=== PATIENT | female | born 1945 | race Caucasian/White ===

== ENCOUNTER → 2017-04-05 | Outpatient (CLI) | payer MEDICARE, OTHER ==
--- NOTE | 2017-04-05 17:46 | RAD ---
Metastatic skeletal survey, 04/05/2017: History: Multiple myeloma Multiple views of the bony skeleton were obtained with the following findings are delineated: 1. AP and lateral views of the cervical, thoracic and lumbar spine reveal moderate multilevel degenerative changes. There is a mild thoracolumbar scoliosis. No fracture or destructive bony lesion is seen. 2. A lateral view of the skull reveals no abnormality. 3. A PA view of the chest reveals no destructive bone lesion. The heart size is normal. The lungs are clear. 4. An AP view of the pelvis reveals no abnormality. 5. AP views of both femurs, lower legs, humeri and forearms reveal no fracture or destructive bony lesion. IMPRESSION: 1. Moderate multilevel degenerative change in the spine. 2. Demineralization. 3. No destructive bony lesion is evident.
== END | disposition home or self-care (01) ==
LOC: RAD 12:32
PROVIDERS: ATTEND Internal Medicine Hematology & Oncology
DX: C90.00 Multiple myeloma not having achieved remission (principal)
CPT/HCPCS: 77075

== ENCOUNTER → 2019-01-09 | Outpatient (CLI) | payer MEDICARE, OTHER ==
--- NOTE | 2019-01-16 13:27 | KCIC ---
Bilateral digital screening mammograms and tomosynthesis Reason for examination: Routine screening. New baseline. Remote history of benign left breast biopsy. No comparison studies available. Routine CC and MLO digital views obtained. Interpretation was made with the benefit of CAD. The skin and nipples show no abnormalities. No abnormal lymph nodes are seen. The breast parenchyma is scattered fibroglandular elements. (Breast density: Category B.) There are no suspicious masses, suspicious calcifications or suspicious architectural distortions. Mild distortion of the left upper outer breast tissues related to the history of prior benign surgical excisional biopsy. Separately at the left outer breast posterior depth 3:00 position 6 cm from the nipple is a 1.5 cm circumscribed lobular mass. Separately within the left outer central breast 5 cm from the nipple is a subcentimeter oval circumscribed mass, cyst or lymph node CC tomosynthesis image 7. Separately at the left inner lower breast 8:00 position 6 cm from the nipple there is a 1 cm focal glandular asymmetry without a discrete mass. Given no prior studies to document stability of these findings, this requires further work up with sonography. Impression: 2 small masses of the left outer breast, and small focal glandular asymmetry of the left inner lower breast, as described above. Further evaluation with left breast ultrasound is advised. BI-RADS Category 0: Incomplete examination. Additional imaging advised. "Our facility is accredited by the [employer] Mammography Program." This patient's information has been entered into a reminder system for the patient to be notified with the results of her examination and a target date for the next mammogram. Electronically signed by: Jameson Jain MD (01/16/2019 1:24 PM) [id number]
== END | disposition home or self-care (01) ==
LOC: KCIC MAMMO 14:27
PROVIDERS: ATTEND Family Medicine
DX: Z12.31 Encounter for screening mammogram for malignant neoplasm of breast (principal); N63.23 Unspecified lump in the left breast, lower outer quadrant
CPT/HCPCS: 77063; 77067

== ENCOUNTER → 2019-05-04 | Outpatient (CLI) | payer MEDICARE, OTHER ==
--- NOTE | 2019-05-04 14:32 | KCIC ---
Left breast ultrasound: Reason for examination: Parenchymal densities on screening mammogram. Comparison is made to mammographic exams dated 01/09/2019 and 02/16/2013. Left whole breast ultrasound including evaluation of all 4 quadrants and the retroareolar and axillary regions of the left breast was performed. At the 3:00 position 5 cm from the nipple, there is an irregularly marginated and posterior shadowing 1.3 cm mass present. Ultrasound-guided biopsy is recommended. In the 4:00 position 4.5 cm from the nipple, there is a small 2.9 mm fibrocystic lesion. In the 9:00 position 3 cm from the nipple, there is a hypoechoic irregularly marginated mass measuring 1.3 cm in greatest dimension. Ultrasound-guided biopsy is recommended. No other cystic or solid lesions are seen. No abnormal appearing lymph nodes are seen in the axilla. IMPRESSION: Irregularly marginated masses at the 3:00 position 5 cm from the nipple and at the 9:00 position 3 cm from the nipple both measuring 1.3 cm in greatest dimensions. Recommend further evaluation with ultrasound guided biopsies. BI-RADS Category 4: Suspicious. This report was discussed with the patient and the patient's physician , Dr. Baird, was notified about these findings on 05/04/2019 at 1425. "Our facility is accredited by the [employer] Mammography Program." Electronically signed by: Carmelita Lee MD (05/04/2019 2:29 PM) [facility]
== END ==
LOC: KCIC US 09:58
PROVIDERS: ATTEND Family Medicine
DX: N63.20 Unspecified lump in the left breast, unspecified quadrant (principal)
CPT/HCPCS: 76641

== ENCOUNTER → 2019-05-29 | Outpatient (CLI) | payer MEDICARE, OTHER ==
--- NOTE | 2019-05-29 15:27 | RAD ---
Examination: US GUID NDL PLACE/ASPI/BX, DIGITAL DIAGNOSTIC LT History: 2 left breast masses. Comparison/Correlation: 01/09/2019 screening mammogram exam, 05/04/2019 left breast ultrasound Findings: Risks and benefits of ultrasound-guided breast biopsies with clip marker placement were discussed with the patient. Informed consent was obtained. Cleansing of the left breast was performed with ChloraPrep. Sterile drapes were placed. Lateral approach was utilized for the 3 clock mass lesion. 5 cc 1 percent lidocaine was administered along the expected course of the needle tract to the mass and on the medial aspect of the. Small scalpel incision was made. An introducer was placed. 12-gauge core biopsy needle was placed and a total of 4 passes were made and specimens were placed in formalin jar. This structure decreased in size and appears to at least be partially complex cyst related. Small amount of fluid was noted to drain through the introducer. Subsequently, biopsy clip marker was placed via the introducer. A medial approach was utilized for the left breast 9:00 region mass. 6 cc 1 percent lidocaine was administered medial to the mass and just lateral to it as well. Small scalpel incision was made. An introducer was placed. A separate 12-gauge core biopsy needle was placed into the mass for total of 5 passes. Specimens were placed in the specimen jar. Magic marker was then placed via the introducer. Left MLO and CC images were then obtained and reviewed on a mammography workstation. Biopsy clip markers are identified at the left upper outer breast and the left inner lower breast. No hematoma identified. Impression: Successful biopsy of 2 left breast masses. Specimens sent to the lab in 2 separate formalin jars. Electronically signed by: Willi Foster MD (05/29/2019 3:24 PM) [facility]
--- NOTE | 2019-05-30 16:06 | PATHOLOGY ---
[facility] Accession Number: [id number] . 01 Material submitted: . PART A: breast - LEFT BREAST MASS, 9:00, 3CMFN. Modifiers: left, 9:00 PART B: breast - LEFT BREAST MASS, 3:00, 5CMFN. Modifiers: left, 3:00 . 01 Clinical history: . A. Left breast mass 1.3 cm B. Left breast mass 1.3 cm . 02 Diagnosis: A. Breast tissue, left breast mass 9:00 needle biopsies: - Small focus of stromal fibrosis and mild duct ectasia. . B. Breast tissue, left breast mass 3:00 needle biopsies: - Small focus of stromal fibrosis and focal recent hemorrhage. LBQ 05/30/2019 1429 Local . 02 Comment: Sections of the left breast mass at 9:00 needle biopsy primarily reveal fatty breast tissue containing a few widely scattered small ducts. There is a small focus of stromal fibrosis and mild duct ectasia measuring 4-5 mm in greatest dimension. I am not certain if the mass is represented in the biopsy material. Please correlate with mammographic findings. . Sections of the left breast mass at 3:00 needle biopsy again predominantly reveal fatty breast tissue. There is a small focus of stromal fibrosis measuring 2-3 mm. There are foci of recent hemorrhage measuring up to 0.4 cm. I am not certain if the mass is represented in the biopsy material. Please correlate with mammographic findings. (JPM/db; 05/30/2019) . 02 Electronically signed: . Ollie Espino MD, Pathologist NPI- [id number] . 01 Gross description: . A. Received in formalin labeled "Claudia Kang, left breast 9:00," and additionally labeled on the requisition as "3 cm FN," are multiple needle cores of yellow-stewart fibrofatty tissue measuring 1.5 x 1.2 x 0.4 cm in aggregate dimensions. The tissue is submitted in its entirety in cassette A1-A3. The cold ischemic time is 5 minutes. The total formalin fixation time is 10 hours. . B. Received in formalin labeled "Claudia Kang, left breast 3:00," and additionally labeled on the requisition as "5 cm FN," are multiple needle cores of yellow-stewart fibrofatty tissue measuring 1.1 x 1.0 x 0.3 cm in aggregate dimensions. The tissue is submitted in its entirety in cassette B1-B3. The cold ischemic time is 5 minutes. The total formalin fixation time is 9 hours and 50 minutes. (TSD; 05/29/2019) TOB/TOB 05/29/2019 Local . 02 Pathologist provided ICD-10: N60.32, N60.42 . 02 CPT . 708252, 135250 Specimen Comment: A courtesy copy of this report has been sent to [phone], [phone] Specimen Comment: [id number], Specimen Comment: Report sent to ,DR PAYTON / DR CARRILLO Performed at: 01 [facility] [address], [place] [id number] MD Alden Peace MD Phone: [phone] [facility]formed at: 02 [facility] [address] [place], [place] [id number] MD Ollie Espino MD Phone: [phone]
== END ==
LOC: US 12:02
PROVIDERS: ATTEND Surgery
DX: N63.20 Unspecified lump in the left breast, unspecified quadrant (principal); N60.32 Fibrosclerosis of left breast
CPT/HCPCS: 19083; 19084; 88305; C1713; 19081; 76942

== ENCOUNTER → 2019-05-29 | Outpatient (CLI) | payer MEDICARE, OTHER ==
--- NOTE | 2019-05-29 15:27 | RAD ---
Examination: US GUID NDL PLACE/ASPI/BX, DIGITAL DIAGNOSTIC LT History: 2 left breast masses. Comparison/Correlation: 01/09/2019 screening mammogram exam, 05/04/2019 left breast ultrasound Findings: Risks and benefits of ultrasound-guided breast biopsies with clip marker placement were discussed with the patient. Informed consent was obtained. Cleansing of the left breast was performed with ChloraPrep. Sterile drapes were placed. Lateral approach was utilized for the 3 clock mass lesion. 5 cc 1 percent lidocaine was administered along the expected course of the needle tract to the mass and on the medial aspect of the. Small scalpel incision was made. An introducer was placed. 12-gauge core biopsy needle was placed and a total of 4 passes were made and specimens were placed in formalin jar. This structure decreased in size and appears to at least be partially complex cyst related. Small amount of fluid was noted to drain through the introducer. Subsequently, biopsy clip marker was placed via the introducer. A medial approach was utilized for the left breast 9:00 region mass. 6 cc 1 percent lidocaine was administered medial to the mass and just lateral to it as well. Small scalpel incision was made. An introducer was placed. A separate 12-gauge core biopsy needle was placed into the mass for total of 5 passes. Specimens were placed in the specimen jar. Magic marker was then placed via the introducer. Left MLO and CC images were then obtained and reviewed on a mammography workstation. Biopsy clip markers are identified at the left upper outer breast and the left inner lower breast. No hematoma identified. Impression: Successful biopsy of 2 left breast masses. Specimens sent to the lab in 2 separate formalin jars. Electronically signed by: Willi Foster MD (05/29/2019 3:24 PM) [facility]
== END | disposition home or self-care (01) ==
LOC: MAMMO 11:55
PROVIDERS: ATTEND Surgery
DX: N60.32 Fibrosclerosis of left breast (principal); N60.42 Mammary duct ectasia of left breast; N63.24 Unspecified lump in the left breast, lower inner quadrant; N63.23 Unspecified lump in the left breast, lower outer quadrant; N64.89 Other specified disorders of breast
CPT/HCPCS: 19081; 19083; 19084; 76942; 77065; 88305; C1713

== ENCOUNTER → 2020-01-10 | Outpatient (CLI) | payer MEDICARE, OTHER ==
--- NOTE | 2020-01-10 18:11 | KCIC ---
Bilateral diagnostic digital mammograms with 3-D tomosynthesis: Reason for examination: Follow-up from biopsies. Comparison is made to previous studies dated 01/09/2019 and 02/16/2013. Bilateral mammograms in CC and oblique projections were obtained with 2-D imaging and 3-D tomosynthesis imaging on a Siemens Inspiration unit and reviewed on the workstation. Interpretation was made with the benefit of CAD. The skin and nipples show no abnormalities. No abnormal axillary lymph nodes are seen. The breast parenchyma shows scattered fatty and fibroglandular density. (Breast density: Category B.) There continue to be nodules at the 3:00 and 9:00 B positions of the left breast with adjacent biopsy clips. There also is a small focus of nodularity posterior laterally in the left cc view probably at the 1:00 position. Ultrasound will follow. There are no other dominant masses, suspicious calcifications or architectural distortion. Impression: Nodules at the 3:00 and 9:00 positions of the left breast adjacent biopsy clips. Small nodular density posteriorly at the 1:00 position of the left breast. Ultrasound to follow. BI-RAD Category 0: Incomplete. Needs additional imaging evaluation. Left breast ultrasound: Comparison is made to previous studies dated 05/29/2019 and 05/04/2019. Left whole breast ultrasound including evaluation of all 4 quadrants and the retroareolar and axillary regions of the left breast was performed. There continues to be hypoechoic somewhat heterogeneous nodule in the 3:00 position 5 cm from the nipple measuring 1 cm in greatest dimension with adjacent biopsy clip. There continues to be a 1.4 cm hypoechoic somewhat heterogeneous nodule at the 9:00 position 3.5 cm in size with biopsy clip present. There is also a subtle nodule at the 1:00 position 6 cm from the nipple line in parallel orientation measuring 1 cm in greatest dimension which probably represents a small fibroadenoma. No other suspicious nodules are seen. No abnormal appearing lymph nodes are seen in the axilla. IMPRESSION: Benign nodules at the 3:00 and 9:00 positions. Small nodule consistent with fibroadenoma at the 1:00 position. Recommend continued 6 month follow-up with left breast mammograms and ultrasound. BI-RADS Category 3: Probably Benign. "Our facility is accredited by the [employer] Mammography Program." This patient's information has been entered into a reminder system for the patient to be notified with the results of her examination and a target date for the next mammogram. Electronically signed by: Carmelita Lee MD (01/10/2020 6:08 PM) [email or web address]
== END | disposition home or self-care (01) ==
LOC: KCIC MAMMO 09:24
PROVIDERS: ATTEND Family Medicine
DX: R92.2 Inconclusive mammogram (principal); N63.24 Unspecified lump in the left breast, lower inner quadrant; N63.21 Unspecified lump in the left breast, upper outer quadrant
CPT/HCPCS: 76641; 77066; G0279; 77062

== ENCOUNTER → 2020-09-25 | Outpatient (CLI) | payer MEDICARE, OTHER ==
--- NOTE | 2020-09-26 09:00 | KCIC ---
XR CERVICAL SPINE 2-3V DATE: 09/25/2020 2:02 PM INDICATION: Neck pain since Jun. No known injury. COMPARISON: None. FINDINGS: The cervical spine is visualized to the level of the cervicothoracic junction on the latera l views. Bones/Alignment: No evidence of acute fracture. There is no listhesis. Normal alignment of the later al masses of C1 on C2. Joints: Mild multilevel degenerative disc disease. The facets are normally aligned. Soft tissue: No significant prevertebral soft tissue swelling. IMPRESSION: Mild cervical spondylosis Electronically signed by: Edilberto Peralta MD (09/26/2020 8:58 AM) [facility]
== END ==
LOC: KCIC 13:58
PROVIDERS: ATTEND Nurse Practitioner Gerontology
DX: M47.812 Spondylosis without myelopathy or radiculopathy, cervical region (principal); M50.30 Other cervical disc degeneration, unspecified cervical region
CPT/HCPCS: 72040

== ENCOUNTER → 2020-10-10 | Outpatient (CLI) | payer MEDICARE, OTHER ==
--- NOTE | 2020-10-10 13:27 | KCIC ---
MR CERVICAL SPINE WO DATE: 10/10/2020 10:25 AM INDICATION: cervical arthritis. Pain and stiffness, LROM in neck. Pain is worse in the AM, since Jun . TECHNIQUE: Multiplanar multisequence magnetic resonance imaging of the cervical spine was performed w ithout administration of intravenous contrast using the standard cervical spine protocol. COMPARISON: Cervical spine radiograph 09/25/2020. FINDINGS: The cervical spine is normally aligned. No acute fracture. Mild multilevel degenerative disc desicca tion and disc height loss. No marrow replacing process to suggest malignancy. The spinal cord is normal in signal intensity. On the limited views of the cranial cavity and brain, the cerebellum and brody have normal morphology and signal characteristics. No Chiari malformation. No soft tissue abnormality. Normal signal voids are present in the vertebral arteries. C2-3: No significant spinal canal stenosis or neural foraminal narrowing. C3-4: Mild left facet arthropathy. Mild left neural foraminal narrowing. No spinal canal stenosis. C4-5: Mild left facet arthropathy. No significant spinal canal stenosis or neural foraminal narrowing . C5-6: Disc osteophyte complex. Uncovertebral hypertrophy. Mild facet arthropathy. Mild bilateral neur al foraminal narrowing. No spinal canal stenosis. C6-7: Disc osteophyte complex. Uncovertebral hypertrophy. Mild facet arthropathy. Ligamental flavum t hickening. Mild right neural foraminal narrowing. Mild spinal canal stenosis. C7-T1: Mild facet arthropathy. No significant spinal canal stenosis or neural foraminal narrowing. IMPRESSION: Mild cervical spondylosis, detailed level by level above. Electronically signed by: Edilberto Peralta MD (10/10/2020 1:25 PM) [id number]
== END ==
LOC: KCIC MRI 10:10
PROVIDERS: ATTEND Nurse Practitioner Gerontology
DX: M47.813 Spondylosis without myelopathy or radiculopathy, cervicothoracic region (principal); M25.78 Osteophyte, vertebrae
CPT/HCPCS: 72141